=== PATIENT | male | born 1945 | race Asian ===

== ENCOUNTER 2025-03-19 19:57 | Emergency (ER) | payer MEDICARE ==
[~2025-03-19] VITALS: Ht 185.4 cm; Wt 79.4 kg
[2025-03-19 22:33] LABS: PLATELET COUNT (AUTO) 139 K/uL (150-450); RED BLOOD CELL COUNT(AUTO) 4.78 MIL/uL (4.5-6.0); RED CELL DISTRIBUTION WIDTH 13.0 % (11.5-15.0); WHITE BLOOD COUNT (AUTO) 5.2 K/uL (4.3-11.0)
[2025-03-19 22:40] LABS: CALCIUM, SERUM 9.2 mg/dL (8.5-10.1); CREATININE 0.8 mg/dL (0.6-1.3); SODIUM SERUM 138.0 mmol/L (136-145); UREA NITROGEN, BLOOD 22.0 mg/dL (7-18)
[2025-03-19 22:45] LABS: ASPARTATE AMINOTRANSFERASE 18.0 U/L (15-37); TOTAL PROTEIN, SERUM 7.5 g/dL (6.4-8.2)
[2025-03-20 01:24] VITALS: BP 132/78; TEMP 98.8; O2SAT 98
== END 2025-03-20 01:25 | disposition home or self-care (01) ==
LOC: ER 20:02
DX: R53.1 Weakness (principal); R07.9 Chest pain, unspecified; M79.605 Pain in left leg; R20.0 Anesthesia of skin; Z88.6 Allergy status to analgesic agent
CPT/HCPCS: 36415; 70450-TC; 71045-TC; 80053-TC; 83735-TC; 85025-TC; 93926-TC